=== PATIENT | male | born 1945 | race Caucasian/White ===

== ENCOUNTER 2024-05-10 12:53 | Outpatient (CLI) | payer MEDICARE | END 2024-05-10 12:54 | disposition home or self-care (01) | LOC: CSHMRI 12:53 | PROVIDERS: ATTEND Urology | DX: R97.20 Elevated prostate specific antigen [PSA] (principal); R93.89 Abnormal findings on diagnostic imaging of other specified body structures | CPT/HCPCS: 72197; 82565 ==